=== PATIENT | female | born 1980 | race Caucasian/White ===

== ENCOUNTER 2019-02-11 14:50 | Emergency (ER) | payer MEDICAID ==
[~2019-02-11] VITALS: Ht 160 cm; Wt 56.7 kg
[~2019-02-11 14:50] MED LIST: ACET-7568 PO; ATRO1TAB PO; BEN50 PO; BENZ-203 PO; CLON0.1T42 PO; CLON2TAB PO; DOCU100C16 PO; ETHI-191 PO; FLUO10CA21 PO; GABA300C PO; LEVO500T6 PO; LOTC TP; MAG-17 PO; MAGN400S60 PO; OLAN5TAB29 SL; PROM118S4 PO; QUET300T1 PO; SYN.1 PO; TRAZ100T77 PO; ZOLP5TAB1 PO; [UNRECOGNIZED DRUG - CODE] PO
[2019-02-11 14:54] VITALS: BP 121/72
--- NOTE | 2019-02-11 15:05 | NUR ---
PT TAKEN TO CHAIR A.
--- NOTE | 2019-02-11 15:09 | NUR ---
PT AMBULATED TO BED 4 WITH CAREGIVER AT BEDSIDE
--- NOTE | 2019-02-11 15:14 | NUR ---
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 HAS BRUISE ON HER CHIN. PATIENT STATES PAIN OF 0/10 AT THIS TIME; VSS; PATIENT POSITIONED FOR COMFORT; HOB ELEVATED; BEDRAILS UP X1; BED DOWN. ER MADE AWARE OF PT STATUS.
--- NOTE | 2019-02-11 15:14 | NUR ---
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 HAS BRUISE ON HER CHIN. PATIENT STATES PAIN OF 6/10 AT THIS TIME; VSS; PATIENT POSITIONED FOR COMFORT; HOB ELEVATED; BEDRAILS UP X1; BED DOWN. ER MD MADE AWARE OF PT STATUS.
--- NOTE | 2019-02-11 15:19 | NUR ---
PA EVALUATING PT AT BEDSIDE
[2019-02-11] MEDS ORDERED: BACITRACIN OINT 500 UNITS/GM PKT TP ONE (15:25)
--- NOTE | 2019-02-11 15:42 | NUR ---
XRAY AT BEDSIDE
--- NOTE | 2019-02-11 15:44 | NUR ---
APPLIED BASATRACIN, APPLIED BANDAID TO MIDDLE CHIN WITHOUT ANY ISSUE
--- NOTE | 2019-02-11 15:45 | NUR ---
PT LEFT TO XRAY VIA [facility] WITH COFFEE GRINDER AT PT SIDE
--- NOTE | 2019-02-11 17:00 | NUR ---
PT IS RESTING IN BED WITH EYES CLOSED. CAREGIVER IS AT BEDSIDE.
--- NOTE | 2019-02-11 18:05 | NUR ---
PT IS RESTING IN BED WITH EYES CLOSED. CAREGIVER IS AT BEDSIDE.
--- NOTE | 2019-02-11 18:20 | NUR ---
PATRICIA CHACKO MADE AWARE PT TEMP 100.3
[2019-02-11 18:45] VITALS: BP 124/78
--- NOTE | 2019-02-11 18:45 | NUR ---
Patient discharged with v/s stable. Written and verbal after care instructions given and explained. Patient alert, oriented and verbalized understanding of instructions. Ambulatory with by caregiver. All questions addressed prior to discharge. ID band removed. Patient advised to follow up with PMD. Rx of BACITRACIN 500 UNITS was given. Patient educated on indication of medication including possible reaction and side effects. Opportunity to ask questions provided and answered.
== END 2019-02-11 18:45 | disposition home or self-care (01) ==
LOC: MED 14:50
DX: S03.2XXA Dislocation of tooth, initial encounter (principal); S00.511A Abrasion of lip, initial encounter; S00.81XA Abrasion of other part of head, initial encounter; Z79.899 Other long term (current) drug therapy; Z79.2 Long term (current) use of antibiotics; Z79.891 Long term (current) use of opiate analgesic; W18.39XA Other fall on same level, initial encounter; Y92.89 Other specified places as the place of occurrence of the external cause; Y93.89 Activity, other specified; Y99.8 Other external cause status
CPT/HCPCS: 70150; 99283

== ENCOUNTER 2021-08-15 11:56 | Emergency (ER) | payer MEDICAID ==
[~2021-08-15] VITALS: Ht 160 cm; Wt 74.8 kg
[~2021-08-15 11:56] MED LIST changes: -ACET-7568 PO; +ACET-8296 PO; -BENZ-203 PO; +BENZ-315 PO; +CLON0.1T16 PO; -CLON0.1T42 PO; -PROM118S4 PO; +PROM118S5 PO
[2021-08-15 12:08] VITALS: BP 129/67
[2021-08-15] MEDS ORDERED: KETOROLAC 30 MG/ML VIAL IVP ONE (12:15)
--- NOTE | 2021-08-15 12:16 | NUR ---
Pt ambulated to bed 10 accompanied by caregivers
--- NOTE | 2021-08-15 12:28 | NUR ---
Blood sample handed to CPT Leilani at ER bedside
--- NOTE | 2021-08-15 12:32 | NUR ---
40 y/o F BIB caregiver from [facility] c/o abdominal distention x 2 weeks with constipation. Patient presents ambulatory, GCS 11 baseline d/t IDD/autism. Caregiver reports abdominal distention that progressively worsen for past two weeks. Caregiver reports constipation "smaller, hard stool. Denies nausea, vomiting, diarrhea, chest pain, headache. Patient last seen by PCP 08/07/21. VSS. Respirations even/unlabored. Bed locked in lowest position, side rails x 1. PMH: severe IDD, autistic NKDA Meds: lactulose, levothyroxine, loperamide, ibuprofen, depo-provera, MoM
--- NOTE | 2021-08-15 12:49 | NUR ---
DR PARDO AT BEDSIDE
--- NOTE | 2021-08-15 12:50 | NUR ---
CLARIFIED WITH DR PARDO REGARDING STRAIGHT CATH ORDER, STATED TO DO CT SCAN FIRST AND THEN ATEMPT STRAIGHT CATH IF TOLERATED
[2021-08-15 12:54] LABS: BASOPHILS # (AUTO) 0.1 K/uL (0.00-0.22); BASOPHILS % (AUTO) 0.9 % (0.0-2.0); EOSINOPHILS # (AUTO) 0.1 K/uL (0-0.4); EOSINOPHILS % (AUTO) 1.6 % (0.0-4.0); HEMATOCRIT 38.3 % (36-48); HEMOGLOBIN 12.5 g/dL (12.0-16.0); LYMPHOCYTES # (AUTO) 3.8 K/uL (2.5-16.5); LYMPHOCYTES % (AUTO) 44.3 % (20.5-51.1); MEAN CORPUSCULAR HEMOGLOBIN 29 pg (27-31); MEAN CORPUSCULAR HGB CONC 33 g/dL (33-37); MEAN CORPUSCULAR VOLUME 88.2 fL (80-94); MONOCYTES # (AUTO) 0.9 K/uL (0.8-1.0); MONOCYTES % (AUTO) 10.3 % (1.7-9.3); NEUTROPHILS # (AUTO) 3.6 K/uL (1.8-7.7); NEUTROPHILS % (AUTO) 42.9 % (42.2-75.2); PLATELET COUNT (AUTO) 187 K/uL (140-450); RED BLOOD CELL COUNT(AUTO) 4.34 MIL/uL (4.20-5.40); RED CELL DISTRIBUTION WIDTH 13.6 % (11.6-13.7); WHITE BLOOD COUNT (AUTO) 8.5 K/uL (4.8-10.8)
--- NOTE | 2021-08-15 13:16 | NUR ---
[facility]
--- NOTE | 2021-08-15 13:29 | NUR ---
PT RETURNED FROM CT VIA [facility]
[2021-08-15 13:31] LABS: ALBUMIN 3.7 g/dL (3.4-5.0); ANION GAP 14.7 (8-16); CARBON DIOXIDE 25.5 mmol/L (21-32); POTASSIUM 4.2 mmol/L (3.5-5.1); TOTAL BILIRUBIN 0.2 mg/dL (0.0-1.0)
--- NOTE | 2021-08-15 13:50 | NUR ---
# 15 FR Straightcatheter with utilizing sterile technique. Immediate return of 180 ml clear/yellow urine noted. Urine sample collected and sent to lab. Pt tolerated procedure .
[2021-08-15 14:13] LABS: APPEARANCE,URINE CLEAR (CLEAR); BILIRUBIN,URINE NEGATIVE (NEGATIVE); BLOOD, URINE 1+ (NEGATIVE); COLOR,URINE YELLOW (YELLOW); LEUKOCYTE ESTERASE ,URINE TRACE (NEGATIVE); NITRITE, URINE POSITIVE (NEGATIVE); UGLUCOSE NEGATIVE (NEGATIVE)
[2021-08-15 14:36] VITALS: BP 103/57
[2021-08-15] MEDS ORDERED: CIPR500T4 PO (14:38)
[2021-08-15 14:46] LABS: CALCIUM OXALATE CRYSTALS,UR None Seen /HPF (None Seen); RBC,URINE 0-5 /HPF (0-5); TRICHOMONAS,URINE None Seen /HPF (None Seen); URIC ACID CRYSTALS,URINE None Seen /HPF (None Seen); WBC,URINE 0-5 /HPF (0-5); YEAST,URINE None Seen /HPF (None Seen)
[2021-08-15 14:47] LABS: COARSE GRANULAR CASTS,URINE None Seen /LPF (None Seen); FINE GRANULAR CASTS,URINE None Seen /LPF (None Seen); HYALINE CASTS, URINE None Seen /LPF (None Seen); OTHER CASTS, URINE None Seen /LPF (None Seen); OTHER CRYSTALS,URINE None Seen /HPF (None Seen); RED BLOOD CELL CASTS,URINE None Seen /LPF (None Seen); TRIPLE PHOSPHATE CRYSTAL,UR None Seen /HPF (None Seen); URINE AMORPHOUS URATE None Seen /HPF (None Seen); WAXY CASTS,URINE None Seen /LPF (None Seen)
--- NOTE | 2021-08-15 14:58 | NUR ---
Patient discharged with v/s stable. Written and verbal after care instructions ABOUT UTI AND CONSTIPATION given and explained. Patient CEMENT BLOCK MAKER ALERT ADN ORIENTED VERBALIZED UNDERSTANDING. Ambulatory with steady gait. All questions addressed prior to discharge. ID band removed. Patient advised to follow up with PMD. Rx of CIPRO given. Patient educated on indication of medication including possible reaction and side effects. Opportunity to ask questions provided and answered.
== END 2021-08-15 14:58 | disposition home or self-care (01) ==
LOC: MED 11:56
DX: R14.0 Abdominal distension (gaseous) (principal); N39.0 Urinary tract infection, site not specified; F84.0 Autistic disorder; Z79.899 Other long term (current) drug therapy
CPT/HCPCS: 36415; 74176; 80053; 81001; 81025; 83690; 85025; 87086; 96374; 99284; J1885